=== PATIENT | female | born 1950 | race Caucasian/White ===

== ENCOUNTER → 2017-05-05 | Day surgery (SDC) | payer MEDICARE, BC ==
[~2017-05-05] VITALS: Ht 154.9 cm; Wt 102.1 kg
[~2017-05-05] MED LIST: AMBIEN10 MG PO; BENADRYL25 MG PO; CYMBALTA60 MG PO; HYDROCHLOROTHIA25 MG PO; IBUPROFEN800 MG PO; LOPRESSOR50 MG PO; MOBIC7.5 MG PO; NORCO 5-325 TA1 EACH PO; PLAQUENIL 200200 MG PO; PROTONIX40 MG PO; TRAMADOL HCL50 MG PO; ZYRTEC10 MG PO
== END | disposition home or self-care (01) ==
LOC: OR 07:44
PROVIDERS: Internal Medicine Gastroenterology
PROC: 0DJD8ZZ Inspection of Lower Intestinal Tract, Via Natural or Artificial Opening Endoscopic (ICD-10-PCS; principal; 2017-05-05 13:15)
DX: K59.03 Drug induced constipation (principal); T40.605A Adverse effect of unspecified narcotics, initial encounter; K64.0 First degree hemorrhoids; K64.4 Residual hemorrhoidal skin tags; I10 Essential (primary) hypertension; E66.01 Morbid (severe) obesity due to excess calories; M19.90 Unspecified osteoarthritis, unspecified site; J44.9 Chronic obstructive pulmonary disease, unspecified; Z68.41 Body mass index [BMI] 40.0-44.9, adult; Z90.49 Acquired absence of other specified parts of digestive tract; Z79.82 Long term (current) use of aspirin; Z79.1 Long term (current) use of non-steroidal anti-inflammatories (NSAID); Z79.899 Other long term (current) drug therapy; Z87.19 Personal history of other diseases of the digestive system; Z87.440 Personal history of urinary (tract) infections; Z87.442 Personal history of urinary calculi; Z87.11 Personal history of peptic ulcer disease
CPT/HCPCS: J3010; J7030

== ENCOUNTER → 2022-06-26 | Day surgery (SDC) | payer MEDICARE ==
[~2022-06-26] MED LIST changes: +ASPIRIN81 MG PO; +CLOTRIMAZOLE-BE30 ML TP; +CYMBALTA20 MG PO; +HYDROCHLOROTH12.5 MG PO; +HYDROXYCHLOROQ200 MG PO; +IPRAT-ALBUT 0.5-3 ML INH; +LEVOTHYROXINE25 MC1 PO; +LOPRESSOR 25 MG25 MG PO; +MAGNESIUM; +PROTONIX 40 MG40 M1 PO; +SINGULAIR10 MG PO; +ULTRAM50 MG PO; +ZINC
== END | disposition home or self-care (01) ==
LOC: OR 06:21
PROVIDERS: Internal Medicine Gastroenterology
PROC: 0DJD8ZZ Inspection of Lower Intestinal Tract, Via Natural or Artificial Opening Endoscopic (ICD-10-PCS; principal; 2022-06-26 08:10)
DX: Z12.11 Encounter for screening for malignant neoplasm of colon (principal); K64.1 Second degree hemorrhoids; K57.30 Diverticulosis of large intestine without perforation or abscess without bleeding; K21.9 Gastro-esophageal reflux disease without esophagitis; J44.9 Chronic obstructive pulmonary disease, unspecified; M79.7 Fibromyalgia; K76.6 Portal hypertension; L93.0 Discoid lupus erythematosus; I10 Essential (primary) hypertension; K44.9 Diaphragmatic hernia without obstruction or gangrene; D64.9 Anemia, unspecified; E03.9 Hypothyroidism, unspecified; Z79.82 Long term (current) use of aspirin; Z79.890 Hormone replacement therapy; Z79.899 Other long term (current) drug therapy; Z87.891 Personal history of nicotine dependence
CPT/HCPCS: J2704; J7040